=== PATIENT | male | born 1965 | race Caucasian/White ===

== ENCOUNTER 2022-01-28 10:06 | Outpatient (REF) | payer OTHER, SELFPAY ==
[2022-01-28 11:52] LABS: MANUAL DIFF FLAG NO
[2022-01-28 12:08] LABS: Basophils Absolute Auto 0.1 X10*3/uL (0.0-0.2); Basophils Percent Auto 0.9 % (0-2); Eosinophils Absolute Auto 0.1 X10*3/uL (0.0-0.4); Eosinophils Percent Auto 1.6 % (0-4); Hematocrit 41.9 % (42.0-52.0); Imm Gran Abs Auto 0.02 X10*3/uL (0.00-0.03); Imm Gran Pct Auto 0.3 % (0.0-0.4); Lymphocytes Absolute Auto 2.1 X10*3/uL (1.2-4.9); Lymphocytes Percent Auto 29.7 % (20-40); Mean Corpuscular HGB Conc 33.4 g/dl (31.0-36.0); Mean Corpuscular Hemoglobin 29.3 pg (27.0-33.0); Mean Corpuscular Volume 87.7 fL (80.0-98.0); Mean Platelet Volume 10.9 fL (9.4-12.4); Monocytes Absolute Auto 0.6 X10*3/uL (0.1-1.2); Monocytes Percent Auto 8.4 % (2-11); Neutrophils Absolute Auto 4.2 x10*3/uL (2.0-8.3); Neutrophils Percent Auto 59.1 % (45-73); Platelet Count 267 X10*3/uL (160-400); Red Blood Count 4.78 X10*6/uL (4.60-5.80); Red Cell Distribution Width 13.3 % (11.0-16.0)
[2022-01-28 12:25] LABS: Alanine Aminotransferase 27 U/L (0-40); Albumin Level 4.3 g/dL (3.5-5.0); Alkaline Phosphatase 71 U/L (39-117); Anion Gap 13 (12-20); Aspartate Amino Transferase 24 U/L (5-37); Bilirubin Total 1.8 mg/dL (0.0-1.0); Blood Urea Nitrogen 14 mg/dL (9-16); Calcium 8.9 mg/dL (8.4-10.2); Carbon Dioxide 26 mmol/L (22-29); Chloride 105 mmol/L (96-108); Cholesterol 194 mg/dL; Estimated Glomerular Filt Rate > 60; Glucose Fasting 93 mg/dL (60-99); HDL Cholesterol 42 mg/dL; LDL Cholesterol Calculated 136 mg/dl; Potassium 4.3 mmol/L (3.3-5.1); Sodium 140 mmol/L (135-145); Total Protein 7.4 g/dL (6.5-8.0); Triglycerides 83 mg/dL
[2022-01-28 12:36] LABS: PSA,Total (Free>4and<10) 1.13 ng/mL (0.00-4.00); TSH reflex Free T4 1.18 uIU/mL (0.32-4.0)
== END 2022-01-28 10:07 | disposition home or self-care (01) ==
LOC: HO.HMGCLDS 10:06
PROVIDERS: PCP Internal Medicine; Visit Provider Internal Medicine
DX: Z00.00 Encounter for general adult medical examination without abnormal findings (principal); Z12.5 Encounter for screening for malignant neoplasm of prostate; R60.9 Edema, unspecified; I10 Essential (primary) hypertension
CPT/HCPCS: 36415; 80053; 80061; 84153; 84443; 85025

== ENCOUNTER 2022-08-05 09:32 | Outpatient (REF) | payer OTHER, SELFPAY ==
[2022-08-05 12:09] LABS: Cholesterol 192 mg/dL; HDL Cholesterol 42 mg/dL; LDL Cholesterol Calculated 138 mg/dl; Triglycerides 63 mg/dL
== END 2022-08-05 09:33 | disposition home or self-care (01) ==
LOC: HO.HMGCLDS 09:32
PROVIDERS: PCP Internal Medicine; Visit Provider Internal Medicine
DX: I10 Essential (primary) hypertension (principal)
CPT/HCPCS: 36415; 80061

== ENCOUNTER 2023-02-03 09:33 | Outpatient (REF) | payer OTHER, SELFPAY ==
[2023-02-03 11:21] LABS: MANUAL DIFF FLAG NO
[2023-02-03 11:44] LABS: Basophils Absolute Auto 0.1 X10*3/uL (0.0-0.2); Basophils Percent Auto 0.9 % (0-2); Eosinophils Absolute Auto 0.1 X10*3/uL (0.0-0.4); Eosinophils Percent Auto 2.2 % (0-4); Hematocrit 40.8 % (42.0-52.0); Hemoglobin 13.5 g/dl (14.0-18.0); Imm Gran Abs Auto 0.02 X10*3/uL (0.00-0.03); Imm Gran Pct Auto 0.3 % (0.0-0.4); Lymphocytes Absolute Auto 1.8 X10*3/uL (1.2-4.9); Lymphocytes Percent Auto 28.7 % (20-40); Mean Corpuscular HGB Conc 33.1 g/dl (31.0-36.0); Mean Corpuscular Hemoglobin 29.2 pg (27.0-33.0); Mean Corpuscular Volume 88.3 fL (80.0-98.0); Mean Platelet Volume 10.8 fL (9.4-12.4); Monocytes Absolute Auto 0.6 X10*3/uL (0.1-1.2); Monocytes Percent Auto 9.2 % (2-11); Neutrophils Absolute Auto 3.7 x10*3/uL (2.0-8.3); Neutrophils Percent Auto 58.7 % (45-73); Platelet Count 293 X10*3/uL (160-400); Red Blood Count 4.62 X10*6/uL (4.60-5.80); Red Cell Distribution Width 13.5 % (11.0-16.0); White Blood Count 6.4 X10*3/uL (4.8-10.8)
[2023-02-03 12:41] LABS: PSA,Total (Free>4and<10) 1.61 ng/mL (0.00-4.00)
[2023-02-03 13:24] LABS: Alanine Aminotransferase 17 U/L (0-40); Albumin Level 4.2 g/dL (3.5-5.0); Alkaline Phosphatase 65 U/L (39-117); Anion Gap 10 (12-20); Aspartate Amino Transferase 20 U/L (5-37); Bilirubin Total 1.6 mg/dL (0.0-1.0); Blood Urea Nitrogen 10 mg/dL (9-16); Calcium 9.6 mg/dL (8.4-10.2); Carbon Dioxide 28 mmol/L (22-29); Chloride 107 mmol/L (96-108); Cholesterol 176 mg/dL; Estimated Glomerular Filt Rate > 60; Glucose Fasting 90 mg/dL (60-99); HDL Cholesterol 39 mg/dL; LDL Cholesterol Calculated 122 mg/dl; Potassium 4.3 mmol/L (3.3-5.1); Sodium 141 mmol/L (135-145); Total Protein 7.7 g/dL (6.5-8.0); Triglycerides 76 mg/dL
[2023-02-04 16:09] LABS: LDL Cholesterol Direct 129 mg/dL (<100)
== END 2023-02-03 09:34 | disposition home or self-care (01) ==
LOC: HO.10HDL 09:33
PROVIDERS: Visit Provider Internal Medicine
DX: Z00.00 Encounter for general adult medical examination without abnormal findings (principal); Z12.5 Encounter for screening for malignant neoplasm of prostate; I10 Essential (primary) hypertension; E78.5 Hyperlipidemia, unspecified
CPT/HCPCS: 36415; 80053; 80061; 83721; 84153; 85025

== ENCOUNTER 2023-02-17 11:54 | Outpatient (AMB) | payer OTHER, SELFPAY ==
[2023-02-17 12:00] VITALS: BP 136/80; PULSE 87; O2SAT 98; BMI 27.3
--- NOTE | 2023-02-17 12:00 | MHC.PC.OV ---
Vital Signs 02/17/23 12:00 Height 6 ft Weight 201 lb BMI 27.3 BP 136/80 Blood Pressure Location Lt brachial Position Sitting Pulse 87 Pulse Source Pulse Oximeter Pulse Oximetry (%) 98 Oxygen Delivery Method Room Air Intake Visit Reasons: Annual PE Intake Note: Pt is here today for PE. Allergies amoxicillin Adverse Reaction (Verified 02/17/23 12:01) Hives atropine [From Lomotil] Adverse Reaction (Verified 02/17/23 12:01) Hives diphenoxylate [From Lomotil] Adverse Reaction (Verified 02/17/23 12:01) Hives Medication List - Last Reconciled 02/17/23 by Jessica Adkins MD amlodipine 10 mg PO DAILY losartan 25 mg PO BID Tobacco use date assessed: 02/17/23 Dental Screening Dental Screen Date: 02/17/23 Did you have a dental visit in the last 12 months?: Yes Did you have a dental problem in the last 6 months where you did not have access to dental care?: No Was dental information given to patient?: Patient has dentist HPI Annual PE HPI Details Pt presents for PE. HTN is well controlled current medications. 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 How often do you have a drink containing alcohol?: Monthly or less 2. How many drinks containing alcohol do you have on a typical day when you are drinking?: 1 or 2 3. How often do you have six or more drinks on one occasion?: Never Total Score: 1 LUIZ-7 AMB Questionnaire LUIZ-7 Date LUIZ - 7 assessed: 08/19/22 Source: Developed by DrsChase Raza, Mis Cruz, Mansoor Hayden and colleagues, with an educational chang from [employer]. Review of Systems Const All systems reviewed & are unremarkable except as noted in HPI and below Reports no additional complaints Eyes Reports no additional complaints ENT Reports no additional complaints Card Reports no additional complaints Resp Reports no additional complaints GI Reports no additional complaints Reports no additional complaints Physical exam (Primary Care) Vital Signs: Last Vital Signs Pulse 87 02/17/23 12:00 BP 136/80 02/17/23 12:00 Pulse Ox 98 02/17/23 12:00 Oxygen Delivery Method Room Air 02/17/23 12:00 BMI result Body Mass Index 27.3 Tobacco/Smoking Status: Tobacco use Status Tobacco use date assessed 02/17/23 02/17/23 12:04 Patient Tobacco Use Status Never used Tobacco 02/17/23 12:04 e-Cigarette/Vaping Use Never Used 02/17/23 12:04 Thrive Assessment: Date of Thrive Assessment Date Thrive assessed 08/19/22 02/17/23 12:04 Const General: no acute distress HENMT Head: Yes normal to inspection General nose exam: Normal external nose present Mouth: Normal oral and palatal mucosa present Eyes General: appearance normal, both eyes and all related structures Resp Effort & Inspection: normal respiratory effort Auscultation: clear to auscultation bilaterally Cardio Rhythm: regular rhythm Heart sounds: S1 normal heart sound present and S2 normal heart sound present GI Inspection: Yes normal to inspection Palpation (GI): Soft to palpation Percussion: Yes normal to percussion Auscultation: normal bowel sounds Assessment and Plan Assessment & Plan (1) Hx of colonoscopy: Comment: 2017, recheck 5 years, brother colon ca at 49 Code(s): Z98.890 - Other specified postprocedural states Plan: Patient will schedule appointment with Dr. Whitman for colonoscopy (2) Anemia: Code(s): D64.9 - Anemia, unspecified Plan: For borderline low hemoglobin level iron studies and B12 will be checked. (3) Hyperlipemia: Code(s): E78.5 - Hyperlipidemia, unspecified Plan: Continue low-cholesterol diet (4) Nephrolithiasis: Comment: Dr. Smith Code(s): N20.0 - Calculus of kidney Plan: Follow-up with urology (5) HTN (hypertension): Code(s): I10 - Essential (primary) hypertension Plan: Continue current medications ,physical in 1 year Orders: Orders Vitamin B12 and Folate Today D64.9 - Anemia, unspecified IRON PROFILE Today D64.9 - Anemia, unspecified Comprehensive [facility] Panel Fast 365 Days D64.9 - Anemia, unspecified, E78.5 - Hyperlipidemia, unspecified, I10 - Essential (primary) hypertension, Z00.00 - Encounter for general adult medical examination without abnormal findings Lipid Panel 365 Days D64.9 - Anemia, unspecified, E78.5 - Hyperlipidemia, unspecified, I10 - Essential (primary) hypertension, Z00.00 - Encounter for general adult medical examination without abnormal findings PSA,Total (Free>4and<10) 365 Days D64.9 - Anemia, unspecified, E78.5 - Hyperlipidemia, unspecified, I10 - Essential (primary) hypertension, Z00.00 - Encounter for general adult medical examination without abnormal findings TSH reflex Free T4 365 Days D64.9 - Anemia, unspecified, E78.5 - Hyperlipidemia, unspecified, I10 - Essential (primary) hypertension, Z00.00 - Encounter for general adult medical examination without abnormal findings Complete Blood Count Auto Diff 365 Days D64.9 - Anemia, unspecified, E78.5 - Hyperlipidemia, unspecified, I10 - Essential (primary) hypertension, Z00.00 - Encounter for general adult medical examination without abnormal findings Referrals Gastroenterology Referral Z98.890 - Other specified postprocedural states Medications: Refilled amlodipine 10 mg PO DAILY 90 tabs 3RF losartan 25 mg PO BID 180 tabs 3RF Coding Level of Care Code Est Pt Prev Care 40-64y(89982) Diagnoses Hx of colonoscopy Z98.890 Anemia D64.9 Hyperlipemia E78.5 Nephrolithiasis N20.0 HTN (hypertension) I10
== END 2023-02-17 13:03 | disposition home or self-care (01) ==
PROVIDERS: Visit Provider Internal Medicine
DX: Z00.00 Encounter for general adult medical examination without abnormal findings (principal); I10 Essential (primary) hypertension; Z98.890 Other specified postprocedural states; D64.9 Anemia, unspecified; E78.5 Hyperlipidemia, unspecified; N20.0 Calculus of kidney
CPT/HCPCS: 99396

== ENCOUNTER 2023-02-17 12:52 | Outpatient (REF) | payer OTHER, SELFPAY ==
[2023-02-17 16:15] LABS: Iron 61 mcg/dL (45-160); Percent Iron Saturation 26 % (15-50); Total Iron Binding Capacity 237 mcg/dL (228-428); Unsaturated Iron Binding 176 ug/dL
[2023-02-17 16:52] LABS: Folate 12.8 ng/mL (> or = 4.0); Vitamin B12 764 pg/mL (200-900)
== END 2023-02-17 12:53 | disposition home or self-care (01) ==
LOC: HO.HMGCLDS 12:52
PROVIDERS: PCP Internal Medicine; Visit Provider Internal Medicine
DX: D64.9 Anemia, unspecified (principal)
CPT/HCPCS: 36415; 82607; 82746; 83540

== ENCOUNTER 2024-03-01 11:18 | Outpatient (AMB) | payer BC, SELFPAY ==
--- NOTE | 2024-03-01 11:37 | MHC.PC.OV ---
Vital Signs 03/01/24 11:39 Height 6 ft Weight 205 lb BMI 27.8 BP 139/88 Blood Pressure Location Lt brachial Position Sitting Pulse 88 Pulse Source Pulse Oximeter Pulse Oximetry (%) 98 Oxygen Delivery Method Room Air Intake Visit Reasons: Annual PE Intake Note: Patiet here for physical exam. last colon: 2013 Allergies amoxicillin Adverse Reaction (Verified 03/01/24 11:40) Hives atropine [From Lomotil] Adverse Reaction (Verified 03/01/24 11:40) Hives diphenoxylate [From Lomotil] Adverse Reaction (Verified 03/01/24 11:40) Hives Tobacco use date assessed: 03/01/24 Dental Screening Dental Screen Date: 03/01/24 Did you have a dental visit in the last 12 months?: Yes Did you have a dental problem in the last 6 months where you did not have access to dental care?: No Was dental information given to patient?: Patient has dentist HPI Annual PE HPI Details Pt presents for PE. 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 1. Little interest or pleasure in doing things: not at all 2. Feeling down, depressed, or hopeless: not at all 3. Trouble falling or staying asleep, or sleeping too much: not at all 4. Feeling tired or having little energy: not at all 5. Poor appetite or overeating: not at all 6. Feeling bad about yourself - or that you are a failure or have let yourself or your family down: not at all 7. Trouble concentrating on things, such as reading the newspaper or watching television: not at all 8. Moving or speaking so slowly that other people could have noticed. Or the opposite - being so fidgety or restless that you have been moving around a lot more than usual: not at all 9. Thoughts that you would be better off or of hurting yourself in some way: not at all Total score: 0 Depression Screening Interpretation: Negative Depression Screening Done: Yes 05323 - PHQ-9 Billing: Yes Source: Developed by Drs. South Raza, Mis Cruz, Mansoor Hayden and colleagues, with an educational chang from [employer]. Thrive Questionnaire Date Thrive assessed: 02/29/24 I am a: Patient What is your living situation today?: I have a steady place to live Within the past 12 months, did the food you bought not last and you didn't have the money to get more?: Never true Within the past 12 months, did you worry whether your food would run out before you got money to buy more?: Never true Do you have trouble paying for medicines?: No Do you have trouble getting transportation to medical appointments?: No Do you have trouble paying your heating and electricity bill?: No Do you have trouble taking care of your child, family member or friend?: No Do you have trouble with day-to-day activities such as bathing, preparing meals, shopping, managing finances, etc.?: No Are you currently unemployed and looking for a job?: No Are you interested in more education?: No Please select the resources that you would like help with: None Currently or been in a relationship where the following occur: No concerns reported THRIVE Score: 0 AUDIT C Alcohol Use Questionnaire (AUDIT-C) 1. How often do you have a drink containing alcohol?: 2-4 times a month 2. How many drinks containing alcohol do you have on a typical day when you are drinking?: 1 or 2 3. How often do you have six or more drinks on one occasion?: Never Total Score: 2 LUIZ-7 AMB Questionnaire LUIZ-7 Date LUIZ - 7 assessed: 03/01/24 Feeling nervous, anxious, or on edge: 0 = Not at all Not being able to stop or control worryin = Not at all Worrying too much about different things: 0 = Not at all Trouble relaxin = Not at all Being so restless that it is hard to sit still: 0 = Not at all Becoming easily annoyed or irritable: 0 = Not at all Feeling afraid as if something awful might happen: 0 = Not at all Total LUIZ-7 score (0-4 normal; 5-9 mild; 10-14 moderate; 15-21 severe): 0 Source: Developed by Drs. South Raza, Mis Cruz, Mansoor Hayden and colleagues, with an educational chang from [employer]. LUIZ-7 Assessment Billing LUIZ-7 Assessment Tool: LUIZ-7 Assessment 66192 Review of Systems Const All systems reviewed & are unremarkable except as noted in HPI and below Reports no additional complaints Eyes Reports no additional complaints ENT Reports no additional complaints Card Reports no additional complaints Resp Reports no additional complaints GI Reports no additional complaints Reports no additional complaints Physical exam (Primary Care) Vital Signs: Last Vital Signs Pulse 114 H 03/01/24 11:39 BP 150/98 H 03/01/24 11:39 Pulse Ox 98 03/01/24 11:39 Oxygen Delivery Method Room Air 03/01/24 11:39 BMI result Body Mass Index 27.8 Tobacco/Smoking Status: Tobacco use Status Tobacco use date assessed 03/01/24 03/01/24 11:42 Patient Tobacco Use Status Never used Tobacco 03/01/24 11:39 e-Cigarette/Vaping Use Never Used 03/01/24 11:39 PHQ-9: PHQ-9 Score PHQ-9: Total score 0 03/01/24 11:42 Depression Screening Interpretation: Negative Thrive Assessment: Date of Thrive Assessment Date Thrive assessed 02/29/24 03/01/24 11:39 Currently or been in a relationship where the following occur: No concerns reported Const General: no acute distress HENMT Head: Yes normal to inspection Ears: hearing grossly normal bilaterally Face and sinus: Yes normal facial exam Throat: Yes posterior oropharynx normal Eyes General: appearance normal, both eyes and all related structures Neck Neck: Yes no lymphadenopathy and Yes supple Resp Effort & Inspection: normal respiratory effort Auscultation: clear to auscultation bilaterally Cardio Rhythm: regular rhythm Heart sounds: S1 normal heart sound present and S2 normal heart sound present GI Inspection: Yes normal to inspection Palpation (GI): Soft to palpation Percussion: Yes normal to percussion Auscultation: normal bowel sounds Assessment and Plan Assessment & Plan (1) Hx of colonoscopy: Comment: 2017, recheck 5 years, brother colon ca at 49 Code(s): Z98.890 - Other specified postprocedural states Plan: Referred to GI for colonoscopy patient is overdue (2) HTN (hypertension): Code(s): I10 - Essential (primary) hypertension Plan: Blood pressure is elevated today, increase physical activity decrease salt intake discussed with the patient. Follow-up in 1 month and continue the same medications for now (3) Annual physical exam: Code(s): Z00.00 - Encounter for general adult medical examination without abnormal findings Plan: Well-balanced diet regular physical activity discussed with the patient. He will return for fasting blood work (4) Hyperlipemia: Code(s): E78.5 - Hyperlipidemia, unspecified Plan: Continue low-cholesterol diet Orders: Orders Comprehensive [place]. Panel Fast Today E78.5 - Hyperlipidemia, unspecified, I10 - Essential (primary) hypertension, Z00.00 - Encounter for general adult medical examination without abnormal findings TSH reflex Free T4 Today E78.5 - Hyperlipidemia, unspecified, I10 - Essential (primary) hypertension, Z00.00 - Encounter for general adult medical examination without abnormal findings Complete Blood Count Auto Diff Today E78.5 - Hyperlipidemia, unspecified, I10 - Essential (primary) hypertension, Z00.00 - Encounter for general adult medical examination without abnormal findings Lipid Panel Today E78.5 - Hyperlipidemia, unspecified, I10 - Essential (primary) hypertension, Z00.00 - Encounter for general adult medical examination without abnormal findings PSA,Total (Free>4and<10) Today E78.5 - Hyperlipidemia, unspecified, I10 - Essential (primary) hypertension, Z00.00 - Encounter for general adult medical examination without abnormal findings UA w Microscopic Today E78.5 - Hyperlipidemia, unspecified, I10 - Essential (primary) hypertension, Z00.00 - Encounter for general adult medical examination without abnormal findings Referrals Gastroenterology Referral Z98.890 - Other specified postprocedural states Coding Level of Care Code Est Pt Prev Care 40-64y(59677) Diagnoses Hx of colonoscopy Z98.890 HTN (hypertension) I10 Annual physical exam Z00.00 Hyperlipemia E78.5 Additional Codes LUIZ-7 Assessment Billing - LUIZ-7 Assessment Tool: LUIZ-7 Assessment 96145 ([id number])
[2024-03-01 11:39] VITALS: BP 139/88; PULSE 88; O2SAT 98; BMI 27.8
== END 2024-03-01 12:47 | disposition home or self-care (01) ==
PROVIDERS: PCP Internal Medicine; Visit Provider Internal Medicine
DX: Z00.00 Encounter for general adult medical examination without abnormal findings (principal); I10 Essential (primary) hypertension; Z98.890 Other specified postprocedural states; E78.5 Hyperlipidemia, unspecified
CPT/HCPCS: 99396

== ENCOUNTER 2024-03-29 10:06 | Outpatient (REF) | payer BC, SELFPAY ==
[2024-03-29 11:05] LABS: MANUAL DIFF FLAG NO
[2024-03-29 11:17] LABS: Basophils Percent Auto 0.6 % (0-2); Eosinophils Absolute Auto 0.1 X10*3/uL (0.0-0.4); Eosinophils Percent Auto 2.1 % (0-4); Hemoglobin 13.6 g/dl (14.0-18.0); Imm Gran Abs Auto 0.02 X10*3/uL (0.00-0.03); Imm Gran Pct Auto 0.3 % (0.0-0.4); Lymphocytes Absolute Auto 1.9 X10*3/uL (1.2-4.9); Lymphocytes Percent Auto 30.8 % (20-40); Mean Corpuscular HGB Conc 33.2 g/dl (31.0-36.0); Mean Corpuscular Hemoglobin 29.4 pg (27.0-33.0); Mean Corpuscular Volume 88.6 fL (80.0-98.0); Mean Platelet Volume 10.3 fL (9.4-12.4); Monocytes Absolute Auto 0.9 X10*3/uL (0.1-1.2); Monocytes Percent Auto 13.7 % (2-11); Neutrophils Absolute Auto 3.3 x10*3/uL (2.0-8.3); Neutrophils Percent Auto 52.5 % (45-73); Platelet Count 257 X10*3/uL (160-400); Red Blood Count 4.63 X10*6/uL (4.60-5.80); Red Cell Distribution Width 13.4 % (11.0-16.0); White Blood Count 6.2 X10*3/uL (4.8-10.8)
[2024-03-29 11:33] LABS: Appearance Urine Clear; Color Urine Yellow; Glucose Urine UA Negative (Negative); Leukocyte Esterase Urine Negative (Negative); Nitrite Urine Negative (Negative); Urine Blood Negative (Negative); Urine Ketones Negative (Negative); Urine Protein Negative (Neg-Trace)
[2024-03-29 11:40] LABS: Bacteria Urine None Seen (None Seen); Hyaline Casts Urine 0-2 /LPF (0-2); RBC Urine 0-2 /HPF (0-2); Squamous Epithelial Cell Urine 0-2 /HPF (0-2); WBC Urine 0-5 /HPF (0-5)
[2024-03-29 12:06] LABS: PSA,Total (Free>4and<10) 1.06 ng/mL (0.00-4.00)
[2024-03-29 12:20] LABS: Alanine Aminotransferase 21 U/L (0-40); Alkaline Phosphatase 60 U/L (39-117); Anion Gap 13 (12-20); Aspartate Amino Transferase 23 U/L (5-37); Bilirubin Total 1.4 mg/dL (0.0-1.0); Blood Urea Nitrogen 8 mg/dL (9-16); Calcium 9.3 mg/dL (8.4-10.2); Carbon Dioxide 27 mmol/L (22-29); Chloride 105 mmol/L (96-108); Cholesterol 161 mg/dL (<200); Estimated Glomerular Filt Rate > 60; Glucose Fasting 90 mg/dL (60-99); HDL Cholesterol 35 mg/dL (>40); LDL Cholesterol Calculated 110 mg/dL (<100); Potassium 4.1 mmol/L (3.3-5.1); Sodium 141 mmol/L (135-145); Total Protein 7.7 g/dL (6.5-8.0); Triglycerides 82 mg/dL (<150)
[2024-03-29 12:37] LABS: TSH reflex Free T4 1.33 uIU/mL (0.32-4.0)
== END 2024-03-29 10:07 | disposition home or self-care (01) ==
LOC: HO.WFDLDS 10:06
PROVIDERS: Visit Provider Internal Medicine
DX: Z00.00 Encounter for general adult medical examination without abnormal findings (principal); E78.5 Hyperlipidemia, unspecified; D64.9 Anemia, unspecified; I10 Essential (primary) hypertension; Z12.5 Encounter for screening for malignant neoplasm of prostate
CPT/HCPCS: 36415; 80053; 80061; 81001; 84153; 84443; 85025

== ENCOUNTER 2024-04-12 09:17 | Outpatient (AMB) | payer BC, SELFPAY ==
[2024-04-12 09:21] VITALS: BP 139/88; PULSE 76; O2SAT 98; BMI 27.5
--- NOTE | 2024-04-12 09:21 | MHC.PC.OV ---
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: House Patient Tobacco Use Status: Never used Tobacco e-Cigarette/Vaping Use: Never Used service: No Current occupational status: employed Cognitive needs: No Hearing needs: No Vision needs: Yes Questionnaire Thrive Questionnaire Date Thrive assessed: 02/29/24 I am a: Patient What is your living situation today?: I have a steady place to live Within the past 12 months, did the food you bought not last and you didn't have the money to get more?: Never true Within the past 12 months, did you worry whether your food would run out before you got money to buy more?: Never true Do you have trouble paying for medicines?: No Do you have trouble getting transportation to medical appointments?: No Do you have trouble paying your heating and electricity bill?: No Do you have trouble taking care of your child, family member or friend?: No Do you have trouble with day-to-day activities such as bathing, preparing meals, shopping, managing finances, etc.?: No Are you currently unemployed and looking for a job?: No Are you interested in more education?: No Please select the resources that you would like help with: None Currently or been in a relationship where the following occur: No concerns reported THRIVE Score: 0 LUIZ-7 AMB Questionnaire LUIZ-7 Date LUIZ - 7 assessed: 03/01/24 Feeling nervous, anxious, or on edge: 0 = Not at all Not being able to stop or control worryin = Not at all Worrying too much about different things: 0 = Not at all Trouble relaxin = Not at all Being so restless that it is hard to sit still: 0 = Not at all Becoming easily annoyed or irritable: 0 = Not at all Feeling afraid as if something awful might happen: 0 = Not at all Total LUIZ-7 score (0-4 normal; 5-9 mild; 10-14 moderate; 15-21 severe): 0 Source: Developed by Drs. South Raza, Mis Cruz, Mansoor Hayden and colleagues, with an educational chang from [employer]. LUIZ-7 Assessment Billing LUIZ-7 Assessment Tool: LUIZ-7 Assessment 02664 Review of Systems Const All systems reviewed & are unremarkable except as noted in HPI and below ENT Reports no additional complaints Card Reports no additional complaints Resp Reports no additional complaints GI Reports no additional complaints Reports no additional complaints Physical exam (Primary Care) Vital Signs: Last Vital Signs Pulse 76 04/12/24 09:21 BP 139/88 04/12/24 09:21 Pulse Ox 98 04/12/24 09:21 Oxygen Delivery Method Room Air 04/12/24 09:21 BMI result Body Mass Index 27.5 Tobacco/Smoking Status: Tobacco use Status Tobacco use date assessed 03/01/24 04/12/24 09:24 Patient Tobacco Use Status Never used Tobacco 04/12/24 09:24 e-Cigarette/Vaping Use Never Used 04/12/24 09:24 Thrive Assessment: Date of Thrive Assessment Date Thrive assessed 02/29/24 04/12/24 09:24 Currently or been in a relationship where the following occur: No concerns reported Const General: no acute distress HENMT Head: Yes normal to inspection Face and sinus: Yes normal facial exam Eyes General: appearance normal, both eyes and all related structures Neck Neck: Yes no lymphadenopathy and Yes supple Resp Effort & Inspection: normal respiratory effort Auscultation: clear to auscultation bilaterally Cardio Rhythm: regular rhythm Heart sounds: S1 normal heart sound present and S2 normal heart sound present Coding Level of Care Code Est Pt Level 4 (60419) Diagnoses Anemia D64.9 Hyperlipemia E78.5 HTN (hypertension) I10 Additional Codes LUIZ-7 Assessment Billing - LUIZ-7 Assessment Tool: LUIZ-7 Assessment 84131 ([id number]) Assessment & Plan Assessment & Plan (1) Anemia: Comment: Normal iron count and B12 level Code(s): D64.9 - Anemia, unspecified Category: Medical Plan: Monitor CBC (2) Hyperlipemia: Comment: Diet controlled Code(s): E78.5 - Hyperlipidemia, unspecified Category: Medical Plan: Low-cholesterol diet (3) HTN (hypertension): Code(s): I10 - Essential (primary) hypertension Category: Medical Plan: Continue amlodipine and increase losartan to 100 mg a day follow-up in 2 months Medications: New losartan 100 mg PO DAILY 90 tabs 0RF Discontinued losartan Discontinued Reason: Doctor's Order 25 mg PO BID 180 tabs 3RF
== END 2024-04-12 16:07 | disposition home or self-care (01) ==
PROVIDERS: PCP Internal Medicine; Visit Provider Internal Medicine
DX: D64.9 Anemia, unspecified (principal); E78.5 Hyperlipidemia, unspecified; I10 Essential (primary) hypertension

== ENCOUNTER → 2024-04-12 09:17 | Outpatient (BNVA) | payer BC, SELFPAY | PROVIDERS: PCP Internal Medicine; Visit Provider Internal Medicine | DX: D64.9 Anemia, unspecified (principal); E78.5 Hyperlipidemia, unspecified; I10 Essential (primary) hypertension; Z79.899 Other long term (current) drug therapy | CPT/HCPCS: 96127 ==

== ENCOUNTER 2024-06-13 09:25 | Outpatient (AMB) | payer BC, SELFPAY ==
[2024-06-13 09:34] VITALS: BP 138/78; PULSE 91; O2SAT 97; BMI 27.8
--- NOTE | 2024-06-13 09:34 | A.OFFPC_ITS ---
Vital Signs 06/13/24 09:34 Height 6 ft Weight 205 lb BMI 27.8 BP 138/78 Blood Pressure Location Lt brachial Position Sitting Pulse 91 Pulse Source Pulse Oximeter Pulse Oximetry (%) 97 Oxygen Delivery Method Room Air Intake Visit Reasons: 2m follow up Intake Note: Pt is here today for 2 months follow up visit. Allergies amoxicillin Adverse Reaction (Verified 06/13/24 09:36) Hives atropine [From Lomotil] Adverse Reaction (Verified 06/13/24 09:36) Hives diphenoxylate [From Lomotil] Adverse Reaction (Verified 06/13/24 09:36) Hives Medication List - Last Reconciled 06/13/24 by Jessica Adkins MD amlodipine 10 mg PO DAILY losartan 100 mg PO DAILY Tobacco use date assessed: 06/13/24 Dental Screening Dental Screen Date: 03/01/24 HPI 2m follow up HPI Details Patient presents for the follow-up on hypertension controlled on current medications PFSH Medical History Erectile dysfunction Nephrolithiasis HTN (hypertension) Surgical History Hx of colonoscopy Family History Brother Colon cancer Sister Ovarian ca Mother CVA (cerebral vascular accident) Social History 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:: , 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, 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, 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: House Patient Tobacco Use Status: Never used Tobacco e-Cigarette/Vaping Use: Never Used service: No Current occupational status: employed Cognitive needs: No Hearing needs: No Vision needs: Yes Questionnaire Thrive Questionnaire Date Thrive assessed: 02/29/24 I am a: Patient What is your living situation today?: I have a steady place to live Within the past 12 months, did the food you bought not last and you didn't have the money to get more?: Never true Within the past 12 months, did you worry whether your food would run out before you got money to buy more?: Never true Do you have trouble paying for medicines?: No Do you have trouble getting transportation to medical appointments?: No Do you have trouble paying your heating and electricity bill?: No Do you have trouble taking care of your child, family member or friend?: No Do you have trouble with day-to-day activities such as bathing, preparing meals, shopping, managing finances, etc.?: No Are you currently unemployed and looking for a job?: No Are you interested in more education?: No Please select the resources that you would like help with: None Currently or been in a relationship where the following occur: No concerns reported THRIVE Score: 0 LUIZ-7 AMB Questionnaire LUIZ-7 Date LUIZ - 7 assessed: 03/01/24 Source: Developed by Drs. South Raza, Mis Cruz, Mansoor Hayden and colleagues, with an educational chang from [employer]. Review of Systems Const All systems reviewed & are unremarkable except as noted in HPI and below Eyes Reports no additional complaints ENT Reports no additional complaints Card Reports no additional complaints Resp Reports no additional complaints GI Reports no additional complaints Reports no additional complaints Physical exam (Primary Care) Vital Signs: Last Vital Signs Pulse 91 06/13/24 09:34 BP 138/78 06/13/24 09:34 Pulse Ox 97 06/13/24 09:34 Oxygen Delivery Method Room Air 06/13/24 09:34 BMI result Body Mass Index 27.8 Tobacco/Smoking Status: Tobacco use Status Tobacco use date assessed 06/13/24 06/13/24 09:37 Patient Tobacco Use Status Never used Tobacco 06/13/24 09:34 e-Cigarette/Vaping Use Never Used 06/13/24 09:34 Thrive Assessment: Date of Thrive Assessment Date Thrive assessed 02/29/24 06/13/24 09:34 Currently or been in a relationship where the following occur: No concerns reported Const General: no acute distress HENMT Head: Yes normal to inspection Mouth: Normal oral and palatal mucosa present Eyes General: appearance normal, both eyes and all related structures Resp Effort & Inspection: normal respiratory effort Auscultation: clear to auscultation bilaterally Cardio Rhythm: regular rhythm Heart sounds: S1 normal heart sound present and S2 normal heart sound present GI Inspection: Yes normal to inspection Coding Level of Care Code Est Pt Level 3 (26255) Diagnoses HTN (hypertension) I10 Assessment & Plan Assessment & Plan (1) HTN (hypertension): Code(s): I10 - Essential (primary) hypertension Category: Medical Plan: Continue current medications and increase physical activity. Follow-up in 4 months Orders: Orders Basic Metabolic Panel 1 Week I10 - Essential (primary) hypertension Medications: Refilled amlodipine 10 mg PO DAILY 90 tabs 3RF losartan 100 mg PO DAILY 90 tabs 3RF
== END 2024-06-13 10:20 | disposition home or self-care (01) ==
PROVIDERS: PCP Internal Medicine; Visit Provider Internal Medicine
DX: I10 Essential (primary) hypertension (principal)

== ENCOUNTER → 2024-06-13 09:25 | Outpatient (BNVA) | payer BC, SELFPAY | PROVIDERS: PCP Internal Medicine; Visit Provider Internal Medicine ==

== ENCOUNTER 2024-06-14 15:11 | Outpatient (AMB) | payer BC, SELFPAY ==
--- NOTE | 2024-06-14 15:15 | A.OFFVIS_ITS ---
Vital Signs 06/14/24 15:17 Height 6 ft Weight 210 lb 5.136 oz BMI 28.5 BP 144/78 H Blood Pressure Location Rt brachial Position Sitting Pulse 82 Pulse Source Pulse Oximeter Pulse Oximetry (%) 97 Oxygen Delivery Method Room Air Intake Visit Reasons: Colonoscopy Screening Intake Note: NEW PATIENT Luis presents in office today for a scheduled colo scrn Prior hx of colo/egd? 2017 via [facility] Meds and Allergies reviewed? Y Any significant concerns or questions? N Pharmacy verified? [facility] Allergies amoxicillin Adverse Reaction (Verified 06/14/24 15:16) Hives atropine [From Lomotil] Adverse Reaction (Verified 06/14/24 15:16) Hives diphenoxylate [From Lomotil] Adverse Reaction (Verified 06/14/24 15:16) Hives HPI HPI Colonoscopy Screening: Details: 58 year old? male with past medical history of anemia, hyperlipidemia, hypertension is here today for pre colonoscopy screening.? Patient was sent to us by his PCP.? Last colonoscopy was done it [facility] patient believes it was in 2017. Patient reports his brother was diagnosed with colorectal cancer at age 49.? Patient denies any gastrointestinal symptoms in the past or at present.? ? Denies history of difficulty with sedation or anesthesia in the past.? Negative for history of sleep apnea.? Denies any history of cardiac, renal, pulmonary, or hepatic disease.?? No history of infectious? diseases like hepatitis A, B, C, HIV or tuberculosis.? 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: House Patient Tobacco Use Status: Never used Tobacco e-Cigarette/Vaping Use: Never Used service: No Current occupational status: employed Cognitive needs: No Hearing needs: No Vision needs: Yes Review of Systems Const Denies weight gain and Denies weight loss ENT Reports no additional complaints, Denies dysphagia and Denies odynophagia Card Reports no additional complaints Resp Reports no additional complaints GI Denies abdominal pain, Denies belching, Denies melena, Denies bloating, Denies change in bowel habits, Denies dysphagia, Denies excessive flatus, Denies dyspepsia, Denies heartburn, Denies diarrhea, Denies loose stools, Denies nausea, Denies odynophagia and Denies vomiting Reports no additional complaints Musc Reports no additional complaints Neuro Reports no additional complaints Psych Reports no additional complaints Endo Reports no additional complaints Physical Exam Vital Signs: Last Vital Signs Pulse 82 06/14/24 15:17 BP 144/78 H 06/14/24 15:17 Pulse Ox 97 06/14/24 15:17 Oxygen Delivery Method Room Air 06/14/24 15:17 BMI result Body Mass Index 28.5 Const General: healthy appearing, no acute distress and well developed Nutritional Appearance: well nourished Orientation/consciousness: patient oriented x3 Resp Effort & Inspection: normal respiratory effort, able to speak in complete sentences, no tracheal deviation and symmetric chest movement Auscultation: clear to auscultation bilaterally Cardio Rate: regular rate GI Inspection: Yes normal to inspection and No distended Palpation (GI): Soft to palpation, not firm, nontender and No hepatosplenomegaly present Auscultation: normal bowel sounds General: Yes no CVA tenderness Back/Spine/Pelvis Back: no CVA tenderness Skin General skin exam: elasticity normal, turgor normal and dry skin Neuro General: patient oriented x3 Psych Appearance: grossly normal Mental Status: mental status grossly normal Assessment & Plan Assessment & Plan (1) Hx of colonoscopy: Code(s): Z98.890 - Other specified postprocedural states Category: Medical (2) Screen for colon cancer: Code(s): Z12.11 - Encounter for screening for malignant neoplasm of colon (3) Family history of colorectal cancer: Code(s): Z80.0 - Family history of malignant neoplasm of digestive organs Category: Medical Plan Patient denies any GI, cardiac or respiratory symptoms.? Denies any issues with anesthesia in the past.? Denies any history of sleep apnea.? No history infectious diseases in the past or present.? Not on any anticoagulation therapy.? No family or personal history of colon cancer or polyps.? Patient denies melena, hematochezia, unintentional weight loss or ribbon like stools.? Discussed at length the pre-procedure,? prep, diet & medications as well as what to expect prior, during and after the procedure.?? Stressed the importance of good bowel prep.? Recommended the use of Vaseline or Calmoseptine OTC & baby wipes with bowel movements to promote comfort.? ?Patient verbalizes understanding and agrees to plan of care.? He was given the opportunity to ask questions and all questions answered.? We will see him after the procedure.? Medications: New bisacodyl (Dulcolax (bisacodyl)) take 4 tabs at noon the day before your colonoscopy 20 mg (4 x 5 mg) PO ONCE 4 tabs 0RF 1 day Z12.11 - Encounter for screening for malignant neoplasm of colon polyethylene glycol 3350 (Miralax) As directed by gastroenterology department at [facility] 238 grams PO ONCE 238 grams 0RF Z12.11 - Encounter for screening for malignant neoplasm of colon Coding Level of Care Code New Pt Level 3 (95236) Diagnoses Hx of colonoscopy Z98.890 Screen for colon cancer Z12.11 Family history of colorectal cancer Z80.0 Time Spent (min) 40 Comment 30 minutes spent with patient and additional 10 minutes spent reviewing his records
[2024-06-14 15:17] VITALS: BP 144/78; PULSE 82; O2SAT 97; BMI 28.5
== END 2024-06-14 16:23 | disposition home or self-care (01) ==
PROVIDERS: PCP Internal Medicine; Visit Provider Nurse Practitioner Family
DX: Z01.818 Encounter for other preprocedural examination (principal); Z12.11 Encounter for screening for malignant neoplasm of colon; Z80.0 Family history of malignant neoplasm of digestive organs
CPT/HCPCS: S0285

== ENCOUNTER 2024-06-25 09:43 | Outpatient (REF) | payer BC, SELFPAY ==
[2024-06-25 13:33] LABS: MANUAL DIFF FLAG NO
[2024-06-25 13:38] LABS: Basophils Absolute Auto 0.1 X10*3/uL (0.0-0.2); Basophils Percent Auto 0.8 % (0-2); Eosinophils Absolute Auto 0.1 X10*3/uL (0.0-0.4); Eosinophils Percent Auto 1.5 % (0-4); Hematocrit 40.7 % (42.0-52.0); Hemoglobin 13.2 g/dl (14.0-18.0); Imm Gran Abs Auto 0.03 X10*3/uL (0.00-0.03); Imm Gran Pct Auto 0.4 % (0.0-0.4); Lymphocytes Percent Auto 26.9 % (20-40); Mean Corpuscular HGB Conc 32.4 g/dl (31.0-36.0); Mean Corpuscular Volume 89.5 fL (80.0-98.0); Mean Platelet Volume 10.7 fL (9.4-12.4); Monocytes Absolute Auto 0.7 X10*3/uL (0.1-1.2); Monocytes Percent Auto 9.2 % (2-11); Neutrophils Absolute Auto 4.5 x10*3/uL (2.0-8.3); Neutrophils Percent Auto 61.2 % (45-73); Platelet Count 263 X10*3/uL (160-400); Red Blood Count 4.55 X10*6/uL (4.60-5.80); Red Cell Distribution Width 13.6 % (11.0-16.0); White Blood Count 7.4 X10*3/uL (4.8-10.8)
[2024-06-25 14:11] LABS: PSA,Total (Free>4and<10) 1.31 ng/mL (0.00-4.00)
[2024-06-25 14:13] LABS: Alanine Aminotransferase 28 U/L (0-40); Alkaline Phosphatase 64 U/L (39-117); Anion Gap 8 (12-20); Aspartate Amino Transferase 30 U/L (5-37); Bilirubin Total 1.1 mg/dL (0.0-1.0); Blood Urea Nitrogen 15 mg/dL (9-16); Calcium 9.1 mg/dL (8.4-10.2); Carbon Dioxide 29 mmol/L (22-29); Chloride 108 mmol/L (96-108); Cholesterol 173 mg/dL (<200); Estimated Glomerular Filt Rate > 60; Glucose Fasting 85 mg/dL (60-99); Glucose Random 84 mg/dL (60-115); HDL Cholesterol 43 mg/dL (>40); LDL Cholesterol Calculated 115 mg/dL (<100); Potassium 4.2 mmol/L (3.3-5.1); Sodium 141 mmol/L (135-145); TSH reflex Free T4 1.45 uIU/mL (0.32-4.0); Total Protein 7.2 g/dL (6.5-8.0); Triglycerides 76 mg/dL (<150)
== END 2024-06-25 09:44 | disposition home or self-care (01) ==
LOC: HO.HMGCLDS 09:43
PROVIDERS: PCP Internal Medicine; Visit Provider Internal Medicine
DX: Z00.00 Encounter for general adult medical examination without abnormal findings (principal); E78.5 Hyperlipidemia, unspecified; I10 Essential (primary) hypertension; Z12.5 Encounter for screening for malignant neoplasm of prostate
CPT/HCPCS: 36415; 80048; 80053; 80061; 84153; 84443; 85025

== ENCOUNTER 2024-10-25 12:50 | Outpatient (AMB) | payer BC, SELFPAY ==
--- NOTE | 2024-10-25 12:57 | MHC.PC.OV ---
Vital Signs 10/25/24 12:58 Height 6 ft Weight 204 lb BMI 27.7 BP 136/78 Blood Pressure Location Lt brachial Position Sitting Respiration 18 Pulse 85 Pulse Source Pulse Oximeter Temp 98.5 F Temp Source Oral Pulse Oximetry (%) 99 Oxygen Delivery Method Room Air Intake Visit Reasons: 4m follow up Intake Note: Pt is here today for 4 months follow up visit. Allergies amoxicillin Adverse Reaction (Verified 10/25/24 12:59) Hives atropine [From Lomotil] Adverse Reaction (Verified 10/25/24 12:59) Hives diphenoxylate [From Lomotil] Adverse Reaction (Verified 10/25/24 12:59) Hives Medication List - Last Reconciled 10/25/24 by Jessica Adkins MD amlodipine-olmesartan 10-40 mg 1 tab PO DAILY bisacodyl (Dulcolax (bisacodyl)) 20 mg (4 x 5 mg) PO ONCE 1 day polyethylene glycol 3350 (Miralax) 238 grams PO ONCE Tobacco use date assessed: 10/25/24 Dental Screening Dental Screen Date: 10/25/24 Did you have a dental visit in the last 12 months?: Yes Did you have a dental problem in the last 6 months where you did not have access to dental care?: No Was dental information given to patient?: Patient has dentist HPI 4m follow up HPI Details Patient presents for the follow-up on hypertension. He has been taking amlodipine 10 mg and losartan 100 mg daily. Patient has not been exercising regularly but has been following low-sodium diet. 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 1. Little interest or pleasure in doing things: not at all 2. Feeling down, depressed, or hopeless: not at all 3. Trouble falling or staying asleep, or sleeping too much: not at all 4. Feeling tired or having little energy: not at all 5. Poor appetite or overeating: not at all 6. Feeling bad about yourself - or that you are a failure or have let yourself or your family down: not at all 7. Trouble concentrating on things, such as reading the newspaper or watching television: not at all 8. Moving or speaking so slowly that other people could have noticed. Or the opposite - being so fidgety or restless that you have been moving around a lot more than usual: not at all 9. Thoughts that you would be better off or of hurting yourself in some way: not at all Total score: 0 Depression Screening Interpretation: Negative Depression Screening Done: Yes 98932 - PHQ-9 Billing: Yes Source: Developed by Drs. South Raza, Mis Cruz, Mansoor Hayden and colleagues, with an educational chang from [employer]. Thrive Questionnaire Date Thrive assessed: 10/25/24 I am a: Patient What is your living situation today?: I have a steady place to live Within the past 12 months, did the food you bought not last and you didn't have the money to get more?: Never true Within the past 12 months, did you worry whether your food would run out before you got money to buy more?: Never true Do you have trouble paying for medicines?: No Do you have trouble getting transportation to medical appointments?: No Do you have trouble paying your heating and electricity bill?: No Do you have trouble taking care of your child, family member or friend?: I choose not to answer this question Do you have trouble with day-to-day activities such as bathing, preparing meals, shopping, managing finances, etc.?: Yes Are you currently unemployed and looking for a job?: No Are you interested in more education?: No Please select the resources that you would like help with: None Currently or been in a relationship where the following occur: No concerns reported THRIVE Score: 0 AUDIT C Alcohol Use Questionnaire (AUDIT-C) 1. How often do you have a drink containing alcohol?: Monthly or less 2. How many drinks containing alcohol do you have on a typical day when you are drinking?: 1 or 2 3. How often do you have six or more drinks on one occasion?: Never Total Score: 1 LUIZ-7 AMB Questionnaire LUIZ-7 Date LUIZ - 7 assessed: 10/25/24 Feeling nervous, anxious, or on edge: 0 = Not at all Not being able to stop or control worryin = Not at all Worrying too much about different things: 0 = Not at all Trouble relaxin = Not at all Being so restless that it is hard to sit still: 0 = Not at all Becoming easily annoyed or irritable: 0 = Not at all Feeling afraid as if something awful might happen: 0 = Not at all Total LUIZ-7 score (0-4 normal; 5-9 mild; 10-14 moderate; 15-21 severe): 0 Source: Developed by Drs. South Raza, Mis Cruz, Mansoor Hayden and colleagues, with an educational chang from [employer]. LUIZ-7 Assessment Billing LUIZ-7 Assessment Tool: LUIZ-7 Assessment 44980 Review of Systems Const All systems reviewed & are unremarkable except as noted in HPI and below ENT Reports no additional complaints Card Reports no additional complaints Resp Reports no additional complaints GI Reports no additional complaints Reports no additional complaints Physical exam (Primary Care) Vital Signs: Last Vital Signs Temp 98.5 F 10/25/24 12:58 Pulse 85 10/25/24 12:58 Resp 18 10/25/24 12:58 BP 136/78 10/25/24 12:58 Pulse Ox 99 10/25/24 12:58 Oxygen Delivery Method Room Air 10/25/24 12:58 BMI result Body Mass Index 27.7 Tobacco/Smoking Status: Tobacco use Status Tobacco use date assessed 10/25/24 10/25/24 13:02 Patient Tobacco Use Status Never used Tobacco 10/25/24 13:02 e-Cigarette/Vaping Use Never Used 10/25/24 13:02 PHQ-9: PHQ-9 Score PHQ-9: Total score 0 10/25/24 14:52 Depression Screening Interpretation: Negative Thrive Assessment: Date of Thrive Assessment Date Thrive assessed 10/25/24 10/25/24 13:02 Currently or been in a relationship where the following occur: No concerns reported Const General: no acute distress HENMT Face and sinus: Yes normal facial exam Neck Neck: Yes supple Resp Effort & Inspection: normal respiratory effort Auscultation: clear to auscultation bilaterally Cardio Rhythm: regular rhythm Heart sounds: S1 normal heart sound present and S2 normal heart sound present Coding Level of Care Code Est Pt Level 3 (58030) Diagnoses HTN (hypertension) I10 Additional Codes LUIZ-7 Assessment Billing - LUIZ-7 Assessment Tool: LUIZ-7 Assessment 09437 ([id number]) PHQ-9 - 97198 - PHQ-9 Billing: Yes ([id number]) Assessment & Plan Assessment & Plan (1) HTN (hypertension): Code(s): I10 - Essential (primary) hypertension Category: Medical Plan: Change amlodipine and losartan to amlodipine with olmesartan 10/40. Follow-up in 3 months Orders: Orders Complete Blood Count Auto Diff 4 Months I10 - Essential (primary) hypertension Comprehensive [place]. Panel Fast 4 Months I10 - Essential (primary) hypertension Medications: New amlodipine-olmesartan 10-40 mg 1 tab PO DAILY 90 tabs 0RF Discontinued amlodipine Discontinued Reason: Doctor's Order 10 mg PO DAILY 90 tabs 3RF losartan Discontinued Reason: Doctor's Order 100 mg PO DAILY 90 tabs 3RF
[2024-10-25 12:58] VITALS: BP 136/78; PULSE 85; RESP 18; TEMP 36.9; O2SAT 99; BMI 27.7
--- OUTSIDE RECORDS SUMMARY | 2024-10-25 13:15 | XMS_ITS | Encounter Summary ---
Author Organization [facility] Address [address] [place] [address] Care Team Providers Care Maintainer [employer] Name Role Phone Esperanza Levine MD Primary Care Provider Unavailable Stephan Chavarria MD Primary Care Provider [phone] Encounter Details Date Type Department Care Team Description 07/03/2020 Refill Adult Medicine [address] [id number] Esperanza Levine MD Social History Tobacco Use Types Packs/Day Years Used Date Smoking Tobacco: Never Smokeless Tobacco: Never Alcohol Use Standard Drinks/Week Comments Yes 0 (1 standard drink = 0.6 oz pur e alcohol) occas Sex Assigned at Date Recorded Not on file documented as of this encounter Plan of Treatment Not on file documented as of this encounter Visit Diagnoses Not on filedocumented in this encounter Care Teams Maintainer [employer] Relationship Specialty Start Date End Date Esperanza Levine MD PCP - General 04/13/0004/27 Stephan Chavarria MD [address] [place] [address] [id number] PCP - General Internal Medicine 05/18/21 documented as of this encounter
--- OUTSIDE RECORDS SUMMARY | 2024-10-25 13:15 | XMS_ITS | Encounter Summary ---
Author Organization [facility] Address [address] [place] [address] Care Team Providers Care .Net Programmer Name Role Phone Esperanza Levine MD Primary Care Provider Unavailable Stephan Chavarria MD Primary Care Provider [phone] Encounter Details Date Type Department Care Team Description 12/13/2019 Refill Adult Medicine [address] [id number] Esperanza Levine MD Social History Tobacco Use Types Packs/Day Years Used Date Smoking Tobacco: Never Smokeless Tobacco: Never Alcohol Use Standard Drinks/Week Comments Yes 0 (1 standard drink = 0.6 oz pur e alcohol) occas Sex Assigned at Date Recorded Not on file documented as of this encounter Miscellaneous Notes * Telephone Encounter - Rigo Chow M.A. - 12/13/2019 2:06 PM EDT Pt called to schedule f/u apt. Apt is made. Patient stated that his losartan was sent to the wrong pharmacy. Please resend to [facility] documented in this encounter Plan of Treatment Not on file documented as of this encounter Visit Diagnoses Not on filedocumented in this encounter Care Teams .Net Programmer Relationship Specialty Start Date End Date Esperanza Levine MD PCP - General 04/13/0004/27 Stephan Chavarria MD [address] [place] [id number] PCP - General Internal Medicine 05/18/21 documented as of this encounter
--- OUTSIDE RECORDS SUMMARY | 2024-10-25 13:15 | XMS_ITS | Encounter Summary ---
Author Organization [facility] Address [address] [place] [address] Care Team Providers Care Decal Decorator Name Role Phone Esperanza Levine MD Primary Care Provider Unavailable Stephan Chavarria MD Primary Care Provider Encounter Details Date Type Department Care Team Description 10/16/2014 Hereditary Cancer Qu iz Results Medical Records [address] [place] [id number] Abstract, Provider Social History Tobacco Use Types Packs/Day Years [...] on filedocumented in this encounter Care Teams Decal Decorator Relationship Specialty Start Date End Date Esperanza Levine MD PCP - General 04/13/0004/27 Stephan Chavarria MD [address] [place] [address] [id number] PCP - General Internal Medicine 05/18/21 documented as of this encounter
--- OUTSIDE RECORDS SUMMARY | 2024-10-25 13:15 | XMS_ITS | Clinical Summary ---
Author Organization [facility] Address [address] [place] [address] Care Team Providers Care Lead Web Developer Name Role Phone Stephan Chavarria MD Primary Care Provider [phone] Allergies Active Allergy Reactions Severity Noted Date Comments Amoxicillin Hives/Urticaria 11/07/2016 Lomotil Hives/Urticaria 11/16/2005 Penicillins Hives/Urticaria,Rash/Dermatitis 03/2006 Medications Medication Sig Dispensed Refills Start Date End Date Status MULTIVITAMIN OR one po qd 0 Active CALCIUM + D 600-200 MG-UNIT OR TABS 1 TABLET DAILY 0 Activ e sildenafil (REVATIO) 20 MG tablet Take 1 Tab by mouth as needed for Erectile Dysfunction. 100 Tab 0 09/15/2020 Active losartan (COZAAR) 25 MG tablet Take 1 tablet by mouth 2 times daily. 180 tablet 1 06/22/2021 Active amlodipine (NORVASC) 10 MG tablet Take 1 tablet by mouth daily for 180 days. 90 tablet 1 06/22/2021 Active Active Problems Problem Noted Date Nephrolithiasis 09/22/2020 ED (erectile dysfunction) 06/01/2010 Essential hypertension, benign 8 Family history of malignant neoplasm of gastrointestinal tract 06/07/2006 Overview: Brother with diagnosis of colon cancer at age 48; negative colonoscopy 06.07.06, 08/19/2011; next exam due 2016. ALLERGIC RHINITIS, 10/03/2005 Immunizations Name Administration Dates Next Due Influenza (> 6 Months) 05/18/2016,2014,04/24/2013,2011,06/01/2010,07/03/2009,03/25/2008 Influenza (>6 Months) Split Preservative Free 2011 Influenza H1N1 Pandemic Flu Vaccine 07/03/2009 Influenza Vaccine-quadrivale nt 4 Years Plus 05/07/2017 TD (STATE SUPPLIED FOR ADULT S AND CHILDREN) 10/03/2005 Tdap 2011 Varicella 08/17/2018,07/13/2018 Family History Medical History Relation Name Comments Hypertension Brother 2 Cancer of the Colon Brother 3 Hypertension Father NE Father Stroke Father CA Prostate Maternal Grandfather Hypertension Mother Stroke Mother of cva age 45 Hypertension Sister 2 CA Ovarian Sister 3 Relation Name Status Comments Brother 1 Alive Brother 2 Brother 3 Father Alive Maternal Grandfather Mother Sister 1 Alive Sister 2 Sister 3 Social History Tobacco Use Types Packs/Day Years Used Date Smoking Tobacco: Never Smokeless Tobacco: Never Alcohol Use Standard Drinks/Week Comments Yes 0 (1 standard drink = 0.6 oz pur e alcohol) occas Sex Assigned at Date Recorded Not on file Last Filed Vital Signs Vital Sign Reading Time Taken Comments Blood Pressure 126/80 06/22/2021 2:34 PM EST Pulse 90 06/22/2021 2:34 PM EST Temperature 36.3 ??C (97.4 ??F) 06/22/2021 2:34 PM ES T Respiratory Rate 18 06/22/2021 2:34 PM EST Oxygen Saturation 99% 06/22/2021 2:34 PM EST RA Inhaled Oxygen Concentration - - Weight 93.9 kg (207 lb 1.6 oz) 06/22/2021 2:34 P M EST Height 180.3 cm (5' 11 ) 06/22/2021 2:34 PM EST Body Mass Index 28.88 06/22/2021 2:34 PM EST Plan of Treatment Health Maintenance Due Date Last Done Comments Covid-19 Vaccine (#1) 01/11/1967 SHINGLES VACCINE (1 of 2) 2016 DTAP/TDAP/TD (2 - Td or Tdap) 2021 2011, 10/03/2005 COLON CANCER SCREENING 11/07/2021 7, 08/19/2011, 08/19/2011, Additional history exists BASELINE HEALTH EXAM 40-64 09/22/202209/22, 07/10/2018, 05/18/2016, Additional history exists BMI CHECK/ADVISE 06/26/2024 06/22/2021, , 09/22/2020, Additional history exists INFLUENZA (Season Ended) 2025 019 (Refused), 04/17/2018 (Refused), 05/07/2017, Additional history exists CHOLESTEROL SCREENING 05/25/2026 05/25/2021 , 09/22/2020, 06/11/2019, Additional history exists PNEUMOCOCCAL VACCINE FOR HIGH RISK PATIENTS (#1) 2031 HEPATITIS C SCREENING Addressed 04/20/2015 (Excepti on) Overridden with the intention of not completing the topic Care Teams Lead Web Developer Relationship Specialty Start Date End Date Stephan Chavarria MD [address] [place] [address] PCP - General Internal Medicine 05/18/21
--- OUTSIDE RECORDS SUMMARY | 2024-10-25 13:15 | XMS_ITS | Encounter Summary ---
Author Organization [facility] Address [address] [place] [address] Care Team Providers Care Epic Ambulatory Specialists Name Role Phone Esperanza Levine MD Primary Care Provider Unavailable Stephan Chavarria MD Primary Care Provider [phone] Reason for Visit * Reason Onset Date Comments APPOINTMENT 10/02/2018 [facility] Encounter Details Date Type Department Care Team Description 10/02/2018 Telephone Adult Medicine - [address] [address] Esperanza Levine MD APPOINTMENT ([facility]) Social History Tobacco Use Types Packs/Day Years Used Date Smoking Tobacco: Never Smokeless Tobacco: Never Alcohol Use Standard Drinks/Week Comments Yes 0 (1 standard drink = 0.6 oz pur e alcohol) occas Sex Assigned at Date Recorded Not on file documented as of this encounter Miscellaneous Notes * Telephone Encounter - Manuel Hernandez M.A. - 10/02/2018 3:59 PM EDT Message left for patient to call office back with lady. [facility] appt needed if patient agrees. documented in this encounter Plan of Treatment Not on file documented as of this encounter Visit Diagnoses Not on filedocumented in this encounter Care Teams Epic Ambulatory Specialists Relationship Specialty Start Date End Date Esperanza Levine MD PCP - General 04/13/0004/27 Stephan Chavarria MD [address] [place] [id number] PCP - General Internal Medicine 05/18/21 documented as of this encounter
--- OUTSIDE RECORDS SUMMARY | 2024-10-25 13:15 | XMS_ITS | Encounter Summary ---
Author Organization [facility] Address [address] [place] [address] Care Team Providers Care Service Now Developer Name Role Phone Esperanza Levine MD Primary Care Provider Unavailable Stephan Chavraria MD Primary Care Provider [phone] Encounter Details Date Type Department Care Team Description 05/05/2020 Hospital Medical Records [address] [place] [id number] Xiomara Jolly MD Social History Tobacco Use Types Packs/Day [...] on filedocumented in this encounter Care Teams Service Now Developer Relationship Specialty Start Date End Date Esperanza Levine MD PCP - General 04/13/0004/27 Stephan Chavarria MD [address] [place] [id number] PCP - General Internal Medicine 05/18/21 documented as of this encounter
--- OUTSIDE RECORDS SUMMARY | 2024-10-25 13:15 | XMS_ITS | Encounter Summary ---
Author Organization [facility] Address [address] [place] [address] Care Team Providers Care Assistant Clinical Director Name Role Phone Esperanza Levine MD Primary Care Provider Unavailable Stephan Chavarria MD Primary Care Provider [phone] Encounter Details Date Type Department Care Team Description 10/15/2014 Pt. Non Urgent Medical Question Adult Medicine - [address] [address] Esperanza Levine MD Fatigue (Primary Dx) Social History Tobacco Use Types Packs/Day Years Used Date Smoking Tobacco: Never Smokeless Tobacco: Never Alcohol Use Standard Drinks/Week Comments Yes 0 (1 standard drink = 0.6 oz pur e alcohol) occas Sex Assigned at Date Recorded Not on file documented as of this encounter Progress Notes * Julia Resendez L.P.NChase - 10/15/2014 8:32 AM EDTFrom: Luis Amisha To: Esperanza Levine MD Sent: 10/15/2014 3:03 AM EDT Subject: Feeling tired Recently, I started a new job on occasion I feel very tired in the evening and fall asleep early. Monday it was brought to my attention that the air has elevated levels of C02.( 900 ppm to 5300 ppm).My concern it's making me tired and affecting me. My question is should I have a blood test for C02and at those levels is it a serious concern? I can be reached at [phone] if you have any questions. documented in this encounter Plan of Treatment Not on file documented as of this encounter Results * THYROID PROFILE W/TSH (10/18/2014 4:36 PM EDT) TSH CASCADE 2.53 0.40 - 4.00 uIU/ml 10/19/2014 12:09 PM EDT [facility] 10/18/2014 4:36 PM EDT 10/18/2014 4:37 PM EDT Esperanza Levine MD LAB Performing Organization Address City/State/[facility] Co de Phone Number [facility] [address] [place] [address] * (ABNORMAL) CBC (AUTO DIFF PLATELET) (10/18/2014 4:36 PM EDT) WBC 8.9 4.8 - 10.8 x10-3 10/18/2014 4:45 PM EDT [facility] RBC 4.7 4.5 - 5.5 x10-6 10/18/2014 4:45 PM EDT [facility] HGB 13.7 13.5 - 17.5 g/dl 10/18/2014 4:45 PM EDT [facility] HCT 40.8(L) 42 - 54 % 10/18/2014 4:45 PM EDT [facility] MCV 87.2 79 - 98 fl 10/18/2014 4:45 PM EDT [facility] MCH 29.3 27 - 32 pg 10/18/2014 4:45 PM EDT [facility] MCHC 33.6 32 - 37 g/dl 10/18/2014 4:45 PM EDT [facility] RDW 13.2 11 - 15 % 10/18/2014 4:45 PM EDT [facility] PLT COUNT 287 130 - 400 x10-3 10/18/2014 4:45 PM EDT [facility] MEAN PLATELET VOLUME 10.1 7 - 11 fl 10/18/2014 4:45 PM EDT [facility] NEUT % 59.6 41 - 85 % 10/18/2014 4:45 PM EDT [facility] LYMPH % 28.0 15 - 48 % 10/18/2014 4:45 PM EDT [facility] MONO % 9.8 0 - 12 % 10/18/2014 4:45 PM EDT [facility] EOS % 1.9 0 - 5 % 10/18/2014 4:45 PM EDT [facility] BASO % 0.7 0 - 2 % 10/18/2014 4:45 PM EDT [facility] 10/18/2014 4:36 PM EDT 10/18/2014 4:37 PM EDT Esperanza Levine MD LAB [facility] [address] [facility] * COMPREHENSIVE METABOLIC PANEL (10/18/2014 4:36 PM EDT) [facility] GLUCOSE 89 70 - 100 mg/dL 10/19/2014 12:09 PM [facility] Comment: Reference range applicable to fasting specimens only Based on recommendations from the ADA and AACE, the fasting glucose reference range has been changed to 70-100 mg/dL. ??This change is effective November 09, 2009 BUN 15 5 - 25 mg/dL 10/19/2014 12:09 PM [facility] CREAT 0.9 0.7 - 1.5 mg/dL 10/19/2014 12:09 PM [facility] BUN/CREAT RATIO 16.7 6.0 - 20.0 10/19/2014 12:09 PM [facility] GFR > 60 >60 10/19/2014 12:09 PM [facility] Comment: If patient is -Tristanian, multiply result by 1.21 Chronic Kidney Disease: < 60 ml/min/1.73 square meters Kidney Failure: < 15 ml/min/1.73 square meters Sodium 139 133 - 145 mEq/L 10/19/2014 12:09 PM [facility] Potassium 4.1 3.5 - 5.2 mEq/L 10/19/2014 12:09 PM EDT [facility] Chloride 99 96 - 108 mEq/L 10/19/2014 12:09 PM EDT [facility] CO2 26.6 21.0 - 32.0 mEq/L 10/19/2014 12:09 PM EDT [facility] CALCIUM 9.2 8.5 - 10.5 mg/dL 10/19/2014 12:09 PM EDT [facility] TOTAL PROTEIN 7.1 6.0 - 8.3 gm/dL 10/19/2014 12:09 PM EDT [facility] Albumin 4.4 3.2 - 5.6 gm/dL 10/19/2014 12:09 PM EDT [facility] GLOBULIN 2.7 1.9 - 4.4 gm/dL 10/19/2014 12:09 PM EDT [facility] A/G RATIO 1.6 1.1 - 2.3 10/19/2014 12:09 PM EDT [facility] BILI,TOTAL 0.6 0.0 - 1.2 mg/dL 10/19/2014 12:09 PM EDT [facility] AST (SGOT) 20 10 - 42 U/L 10/19/2014 12:09 PM EDT [facility] ALT( SGPT) 16 10 - 60 U/L 10/19/2014 12:09 PM EDT [facility] ALK PHOS 74 42 - 121 U/L 10/19/2014 12:09 PM EDT [facility] 10/18/2014 4:36 PM EDT 10/18/2014 4:37 PM EDT Esperanza Levine MD LAB [facility] [address] [place] [address] documented in this encounter Visit Diagnoses Diagnosis Fatigue- Primary Other malaise and fatigue documented in this encounter Care Teams Assistant Clinical Director Relationship Specialty Start Date End Date Esperanza Levine MD PCP - General 04/13/0004/27 Stephan Chavarria MD [address] [place] [id number] PCP - General Internal Medicine 05/18/21 documented as of this encounter
--- OUTSIDE RECORDS SUMMARY | 2024-10-25 13:15 | XMS_ITS | Encounter Summary ---
Author Organization [facility] Address [address] [place] [address] Care Team Providers Care Can Closing Machine Operator Name Role Phone Esperanza Levine MD Primary Care Provider Unavailable Stephan Chavarria MD Primary Care Provider [phone] Encounter Details Date Type Department Care Team Description 02/07/2017 Ambulatory Blood Pressure Monitoring Medical Records [address] [place] [id number] Abstract, Provider Social History Tobacco Use Types [...] on filedocumented in this encounter Care Teams Can Closing Machine Operator Relationship Specialty Start Date End Date Esperanza Levine MD PCP - General 04/13/0004/27 Stephan Chavarria MD [address] [place] [id number] PCP - General Internal Medicine 05/18/21 documented as of this encounter
--- OUTSIDE RECORDS SUMMARY | 2024-10-25 13:15 | XMS_ITS | Encounter Summary ---
Author Organization [facility] Address [address] [place] [address] Care Team Providers Care Stone Polisher Machine Name Role Phone Esperanza Levine MD Primary Care Provider Unavailable Stpehan Chavarria MD Primary Care Provider [phone] Encounter Details Date Type Department Care Team Description 05/14/2014 Pt. Non Urgent Medic al Question Adult Medicine - [address] [address] Esperanza Levine MD Social History Tobacco Use Types Packs/Day Years Used Date Smoking Tobacco: Never Smokeless Tobacco: Never Alcohol Use Standard Drinks/Week Comments Yes 0 (1 standard drink = 0.6 oz pur e alcohol) occas Sex Assigned at Date Recorded Not on file documented as of this encounter Progress Notes * Lashell Allred M.A. - 05/14/2014 8:49 AM ESTFrom: Luis Lion To: Esperanza Levine MD Sent: 05/14/2014 1:20 AM EST Subject: dose question Hi Doc, Last August, I asked you about reducing my amlodipine 1.5 tablet (7.5 MG) to 1 tablet (5 MG). You said no and continue with 7.5 MG (1.5 tablet). I just noticed my last two refills indicate 1 tablet (5MG) on the prescription. The question is should I be taking 5 MG or 7.5 MG? I've been taking 1.5 tablet (7.5 MG) per day. Please advise Thank you, [place] documented in this encounter Plan of Treatment Not on file documented as of this encounter Visit Diagnoses Not on filedocumented in this encounter Care Teams Stone Polisher Machine Relationship Specialty Start Date End Date [place]-Esper[place] Vargas MD PCP - General 04/13/0004/27 Stephan Chavarria MD [address] [place] [address] PCP - General Internal Medicine 05/18/21 documented as of this encounter
== END 2024-10-25 15:03 | disposition home or self-care (01) ==
LOC: HO.HMCC 12:51
PROVIDERS: PCP Internal Medicine; Visit Provider Internal Medicine
DX: I10 Essential (primary) hypertension (principal)

== ENCOUNTER → 2024-10-25 12:50 | Outpatient (BNVA) | payer BC, SELFPAY | PROVIDERS: PCP Internal Medicine; Visit Provider Internal Medicine | DX: I10 Essential (primary) hypertension (principal); Z79.899 Other long term (current) drug therapy | CPT/HCPCS: 96127 ==

== ENCOUNTER 2025-01-13 08:15 | Day surgery (SDC) | payer BC, SELFPAY ==
--- NOTE | 2025-01-09 14:59 | HO.ANESPROP2 ---
Documented by User: Elizabeth Chawla NP 01/09/25 15:00 HPI - Anesthesia Eval Consult details Narrative: 59yo M for Colonoscopy PMFSH Active Problems Active Problems: All Active Problems Family history of colorectal cancer (Acute) Anemia (Acute) Hyperlipemia (Acute) Edema (Acute) Annual physical exam (Acute) Hx of colonoscopy (Acute) Erectile dysfunction (Acute) Nephrolithiasis (Acute) HTN (hypertension) (Acute) Past Medical History Medical History Family history of colorectal cancer Erectile dysfunction Nephrolithiasis HTN (hypertension) Family History Family History Brother Colon cancer Sister Ovarian ca Mother CVA (cerebral vascular accident) Surgical History Surgical History Hx of colonoscopy Social History Social History 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:: , 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, 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, 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: House Patient Tobacco Use Status: Never used Tobacco e-Cigarette/Vaping Use: Never Used Use of substances other than those prescribed or required for medical reasons: No Are you DNR?: No Advance Directives: No Advance Directives Information Provided: Yes service: No Current occupational status: employed Cognitive needs: No Hearing needs: No Vision needs: Yes Meds Allergies Allergy/AdvReac Type Severity Reaction Status Date / Time amoxicillin AdvReac Hives Verified 01/13/25 08:42 atropine (From Lomotil) AdvReac Hives Verified 01/13/25 08:42 diphenoxylate (From Lomotil) AdvReac Hives Verified 01/13/25 08:42 Home Medications ?Medication ?Instructions ?Recorded ?Confirmed ?Last Taken ?Type amlodipine 10 mg-olmesartan 40 mg 1 tab PO BEDTIME 01/13/25 01/13/25 Unknown History tablet Assessment and Plan Assessment Anesthesia Assessment: Chart Reviewed Documented by User: Tiffanie Thompson MD 01/13/25 10:13 [facility] Past Medical History Medical History Family history of colorectal cancer Erectile dysfunction Nephrolithiasis HTN (hypertension) Family History Family History Brother Colon cancer Sister Ovarian ca Mother CVA (cerebral vascular accident) Surgical History Surgical History Hx of colonoscopy History of Problems with Anesthesia: No Social History Social History 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:: , 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, 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, 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: House Patient Tobacco Use Status: Never used Tobacco e-Cigarette/Vaping Use: Never Used Use of substances other than those prescribed or required for medical reasons: No Are you DNR?: No Advance Directives: No Advance Directives Information Provided: Yes service: No Current occupational status: employed Cognitive needs: No Hearing needs: No Vision needs: Yes Meds Allergies Allergy/AdvReac Type Severity Reaction Status Date / Time amoxicillin AdvReac Hives Verified 01/13/25 08:42 atropine (From Lomotil) AdvReac Hives Verified 01/13/25 08:42 diphenoxylate (From Lomotil) AdvReac Hives Verified 01/13/25 08:42 Home Medications ?Medication ?Instructions ?Recorded ?Confirmed ?Last Taken ?Type amlodipine 10 mg-olmesartan 40 mg 1 tab PO BEDTIME 01/13/25 01/13/25 Unknown History tablet Exam Airway Mallampati Class: III TM Dist: >3cm Neck ROM: Full Loose/Missing/Broken Teeth: No Heart: RRR Lungs: CTA Assessment and Plan Assessment Anesthesia Assessment: Anesthesia Plan Discussed Final Anesthetic Review History of Problems with Anesthesia: No NPO: Yes ASA Class: II Final Preanesthetic Review: Meds/Allgs Chart Reviewed, Consent Obtained/Reviewed and Anes Risks/Benef Reviewed Patient Risk: Low Procedure Risk: Low Anesthetic Plan Anesthetic Plan: MAC: Disposition: Standard PACU
[2025-01-09 15:47] VITALS: BMI 28.5
--- NOTE | 2025-01-13 08:23 | MHC.SHP ---
Pre-Procedural Eval Section A - 24 Hr Update-Section A only Date of Service: 01/13/25 The patient is an INPATIENT: No The patient has been examined within 24 hours of the surgical procedure. The History & Physical has been completed within 30 days and I have reviewed it.: No Section B - Complete if H&P > 30 days Chief Complaint: screening, FH of colon cancer Relevant Family History (Specify if Yes): Yes Present Medications: see Short Stay Collaborative assessment Medical History: Significant History (Family history of colorectal cancer Erectile dysfunction Nephrolithiasis HTN (hypertension)) History of Previous Operations: Relevant previous surgery/procedure and date(s) (History of colonoscopy) Allergies: Allergies Allergy/AdvReac Type Severity Reaction Status Date / Time amoxicillin AdvReac Hives Verified 10/25/24 12:59 atropine (From Lomotil) AdvReac Hives Verified 10/25/24 12:59 diphenoxylate (From Lomotil) AdvReac Hives Verified 10/25/24 12:59 Review of Systems Sugical H&P ROS: Negative: Constitution, Cardiovascular, Respiratory and Gastrointestinal Exam Surgical H&P Exam: Normal: Heart, Normal: Lungs and Normal: Extremities Plan Diagnosis/Plan: Unchanged I have reviewed the history and physical and performed a pertinent physical examination on my patient. No changes have occurred unless specified. Time Spent With Patient Time: Total time managing care of this patient today ____ minutes.
[2025-01-13 08:45] VITALS: BMI 26.7
[2025-01-13 08:48] VITALS: BP 115/71; PULSE 80; RESP 15; TEMP 36.8; O2SAT 97
[2025-01-13] MEDS: Lactated Ringers 1,000 ML 100 ML IVCONT (08:59)
--- NOTE | 2025-01-13 10:54 | P.OPN-COLO_ITS ---
Colonoscopy Operative Note Operative Note Date of Service: 01/13/25 Narrative: COLONOSCOPY TILL CECUM WITH BIOPSIES AND SNARE POLYPECTOMY Pre-op diagnosis: Colon cancer screening (4th colon - last colon in 2017), family history of colon cancer (brother at age 49 yrs). Post-op diagnosis:? colon polyp, Diverticulosis, hemorrhoids Endoscopist:? Vania Hammer MD Anesthesia:?MAC Consent: Indications for the procedure and potential complications of bleeding, perforation, reaction to medications and missed diagnosis were discussed with the patient and informed consent was obtained. Instrument: Olympus CF H 190 L variable stiffness adult colonoscope Monitoring: Vital signs and clinical assessment, intermittent blood pressure monitoring, continuous EKG monitoring, Pulse oximetry and Carbon Dioxide monitoring were done throughout the procedure. Please see anesthesia flowsheet. Colon withdrawl time was 20 minutes. Procedure: The patient was placed in the left lateral decubitis position and pre-procedure medications were administered. After a digital rectal examination of the ano-rectum, the video colonoscope was inserted into the rectum and advanced through the colon to the cecum. The colonoscope was slowly withdrawn in a retrograde panoramic fashion and the colon mucosa was carefully examined including a retroflexed view of the rectum. Findings and interventions are described below. Procedure Difficulty: without difficulty Findings: Terminal Ileum: Distal 5 cm was examined and appeared normal. Cecum: Posterior lip of ICV appeared prominent and biopsies were obtained Ascending Colon: Normal Transverse Colon: A 7-8 mm sessile polyp in the distal TC at 60 cms - removed with a hot snare. Descending Colon: Moderate diverticulosis Sigmoid Colon: Moderate diverticulosis Rectum: Normal Ano-rectum: Moderate internal hemorrhoids Colon preparation: Good after some irrigation. [place] Bowel Preparation Scale Right colon; 2 Transverse colon: 2 Left colon; 2 (0 = Unprepared colon segment with mucosa not seen due to solid stool that cannot be cleared. 1 = Portion of mucosa of the colon segment seen, but other areas of the colon segment not well seen due to staining, residual stool and/or opaque liquid. 2 = Minor amount of residual staining, small fragments of stool and/or opaque liquid, but mucosa of colon segment seen well. 3 = Entire mucosa of colon segment seen well with no residual staining, small fragments of stool or opaque liquid) Impression and Post Procedure Diagnosis: Colonoscopy Findings: One small polyp was removed Posterior lip of ICV appeared prominent and biopsies were obtained to rule out adenomatous change Moderate diverticulosis seen in the left colon Moderate hemorrhoids on retroflexed exam. Plan: I will send a letter with biopsy results If biopsies from ICV show adenomatous change patient will need surgery for rem oval of the polyp. Repeat Colonoscopy in 5 years if polyps are adenomatous and 10 year if polyps are hyperplastic (of note pt has had 3 negative colonoscopies in the past). Above findings were reviewed with the patient and relevant handouts were given and the discharge area.
[2025-01-13 10:55] VITALS: BP 96/59; PULSE 59; RESP 18; TEMP 36.4; O2SAT 100
[2025-01-13 11:10] VITALS: BP 118/72; PULSE 68; RESP 16; O2SAT 99
[2025-01-13 11:22] VITALS: BP 121/75; PULSE 71; RESP 16; TEMP 36.4; O2SAT 99
== END 2025-01-13 11:39 | disposition home or self-care (01) ==
PROVIDERS: PCP Internal Medicine; Visit Provider Internal Medicine Gastroenterology
PROC: 0DJD8ZZ Inspection of Lower Intestinal Tract, Via Natural or Artificial Opening Endoscopic (ICD-10-PCS; CPT 45378; principal; 2025-01-13 10:10)
DX: Z12.11 Encounter for screening for malignant neoplasm of colon (principal); Z80.0 Family history of malignant neoplasm of digestive organs; K63.5 Polyp of colon; K57.30 Diverticulosis of large intestine without perforation or abscess without bleeding; K64.8 Other hemorrhoids; N52.9 Male erectile dysfunction, unspecified; N20.0 Calculus of kidney; I10 Essential (primary) hypertension; Z79.899 Other long term (current) drug therapy; Z88.1 Allergy status to other antibiotic agents; Z88.8 Allergy status to other drugs, medicaments and biological substances
CPT/HCPCS: 45385; 45380; 88305; J2003; J2704

== ENCOUNTER → 2025-01-13 08:15 | Outpatient (BNV) | payer BC, SELFPAY | PROVIDERS: PCP Internal Medicine; Visit Provider Internal Medicine Gastroenterology | DX: Z12.11 Encounter for screening for malignant neoplasm of colon (principal); K55.8 Other vascular disorders of intestine; D12.3 Benign neoplasm of transverse colon; K57.90 Diverticulosis of intestine, part unspecified, without perforation or abscess without bleeding; K64.8 Other hemorrhoids | CPT/HCPCS: 45380; 45385 ==

== ENCOUNTER 2025-03-07 09:40 | Outpatient (REF) | payer BC, SELFPAY ==
[2025-03-07 13:23] LABS: MANUAL DIFF FLAG NO
[2025-03-07 13:34] LABS: Hematocrit 38.1 % (42.0-52.0); Hemoglobin 12.9 g/dl (14.0-18.0); Imm Gran Abs Auto 0.04 X10*3/uL (0.00-0.03); Imm Gran Pct Auto 0.5 % (0.0-0.4); Lymphocytes Absolute Auto 1.7 X10*3/uL (1.2-4.9); Mean Corpuscular HGB Conc 33.9 g/dl (31.0-36.0); Mean Corpuscular Hemoglobin 29.7 pg (27.0-33.0); Mean Corpuscular Volume 87.8 fL (80.0-98.0); NRBC Abs Auto 0.000 X10*3/uL (0.0-0.012); NRBC Pct Auto 0.0 /100WBC (0.0-0.2); Platelet Count 267 X10*3/uL (160-400); Red Blood Count 4.34 X10*6/uL (4.60-5.80); White Blood Count 7.7 X10*3/uL (4.8-10.8)
[2025-03-07 13:51] LABS: Appearance Urine Clear; Glucose Urine UA Negative (Negative); PH 6.5 (5.0-9.0); Specific Gravity - Urine 1.020 (1.005-1.025)
[2025-03-07 14:14] LABS: PSA,Total (Free>4and<10) 1.50 ng/mL (0.00-4.00)
[2025-03-07 14:26] LABS: Alanine Aminotransferase 35 U/L (0-40); Albumin Level 4.2 g/dL (3.5-5.0); Alkaline Phosphatase 65 U/L (39-117); Anion Gap 10 (12-20); Aspartate Amino Transferase 36 U/L (5-37); Blood Urea Nitrogen 14 mg/dL (9-16); Calcium 8.8 mg/dL (8.4-10.2); Carbon Dioxide 28 mmol/L (22-29); Chloride 108 mmol/L (96-108); Cholesterol 175 mg/dL (<200); Estimated Glomerular Filt Rate > 60; HDL Cholesterol 47 mg/dL (>40); Iron 92 mcg/dL (45-160); Percent Iron Saturation 42 % (15-50); Potassium 3.9 mmol/L (3.3-5.1); Sodium 142 mmol/L (135-145); Total Iron Binding Capacity 221 mcg/dL (228-428); Total Protein 7.1 g/dL (6.5-8.0); Triglycerides 92 mg/dL (<150); Unsaturated Iron Binding 129 ug/dL
[2025-03-07 14:29] LABS: Folate 12.7 ng/mL (> or = 4.0); Vitamin B12 619 pg/mL (200-900)
== END 2025-03-07 09:41 | disposition home or self-care (01) ==
LOC: HO.HMGCLDS 09:40
PROVIDERS: PCP Internal Medicine; Visit Provider Internal Medicine
DX: I10 Essential (primary) hypertension (principal); E78.5 Hyperlipidemia, unspecified; D64.9 Anemia, unspecified; Z12.5 Encounter for screening for malignant neoplasm of prostate; Z98.890 Other specified postprocedural states
CPT/HCPCS: 36415; 80053; 80061; 81001; 82607; 82746; 83540; 84153; 85025; 86140; 96127

== ENCOUNTER 2025-03-07 09:40 | Outpatient (AMB) | payer BC, SELFPAY ==
[2025-03-07 09:43] VITALS: BP 116/66; PULSE 72; RESP 18; TEMP 36.9; O2SAT 97; BMI 28.3
--- NOTE | 2025-03-07 09:43 | A.OFFPC_ITS ---
Vital Signs 03/07/25 09:43 Height 6 ft Weight 209 lb BMI 28.3 BP 116/66 Blood Pressure Location Rt brachial Position Sitting Respiration 18 Pulse 72 Pulse Source Pulse Oximeter Temp 98.4 F Temp Source Oral Pulse Oximetry (%) 97 Oxygen Delivery Method Room Air Intake Visit Reasons: PE Intake Note: Pt is here today for PE. Allergies amoxicillin Adverse Reaction (Verified 03/07/25 10:00) Hives atropine (From Lomotil) Adverse Reaction (Verified 03/07/25 10:00) Hives diphenoxylate (From Lomotil) Adverse Reaction (Verified 03/07/25 10:00) Hives Medication List - Last Reconciled 03/07/25 by Jessica Adkins MD amlodipine-olmesartan 10-40 mg 1 tab PO BEDTIME Tobacco use date assessed: 03/07/25 Dental Screening Dental Screen Date: 10/25/24 HPI PE HPI Details Patient presents for physical PFSH Medical History Family history of colorectal cancer Erectile dysfunction Nephrolithiasis HTN (hypertension) Surgical History (Updated 03/07/25 @ 10:35 by Jessica Adkins MD) Hx of colonoscopy Family History Brother Colon cancer Sister Ovarian ca Mother CVA (cerebral vascular accident) Social History 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:: , 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 1. Little interest or pleasure in doing things: not at all 2. Feeling down, depressed, or hopeless: not at all 3. Trouble falling or staying asleep, or sleeping too much: not at all 4. Feeling tired or having little energy: not at all 5. Poor appetite or overeating: not at all 6. Feeling bad about yourself - or that you are a failure or have let yourself or your family down: not at all 7. Trouble concentrating on things, such as reading the newspaper or watching television: not at all 8. Moving or speaking so slowly that other people could have noticed. Or the opposite - being so fidgety or restless that you have been moving around a lot m ore than usual: not at all 9. Thoughts that you would be better off or of hurting yourself in some way: not at all Total score: 0 Depression Screening Interpretation: Negative Depression Screening Done: Yes Source: Developed by Drs. South Raza, Mis Cruz, Mansoor Hayden and colleagues, with an educational chang from [employer]. Thrive Questionnaire Date Thrive assessed: 10/04/24 I am a: Patient What is your living situation today?: I have a steady place to live Within the past 12 months, did the food you bought not last and you didn't have the money to get more?: Never true Within the past 12 months, did you worry whether your food would run out before you got money to buy more?: Never true Do you have trouble paying for medicines?: No Do you have trouble getting transportation to medical appointments?: No Do you have trouble paying your heating and electricity bill?: No Do you have trouble taking care of your child, family member or friend?: I choose not to answer this question Do you have trouble with day-to-day activities such as bathing, preparing meals, shopping, managing finances, etc.?: Yes Are you currently unemployed and looking for a job?: No Are you interested in more education?: No Please select the resources that you would like help with: None Currently or been in a relationship where the following occur: No concerns reported THRIVE Score: 0 LUIZ-7 AMB Questionnaire LUIZ-7 Date LUIZ - 7 assessed: 10/25/24 Feeling nervous, anxious, or on edge: 0 = Not at all Not being able to stop or control worryin = Not at all Worrying too much about different things: 0 = Not at all Trouble relaxin = Not at all Being so restless that it is hard to sit still: 0 = Not at all Becoming easily annoyed or irritable: 0 = Not at all Feeling afraid as if something awful might happen: 0 = Not at all Total LUIZ-7 score (0-4 normal; 5-9 mild; 10-14 moderate; 15-21 severe): 0 Source: Developed by Drs. South Raza, Mis Cruz, Mansoor Hayden and colleagues, with an educational chang from [employer]. Review of Systems Const All systems reviewed & are unremarkable except as noted in HPI and below Eyes Reports no additional complaints ENT Reports no additional complaints Card Reports no additional complaints Resp Reports no additional complaints GI Reports no additional complaints Reports no additional complaints Physical exam (Primary Care) Vital Signs: Last Vital Signs Temp 98.4 F 03/07/25 09:43 Pulse 72 03/07/25 09:43 Resp 18 03/07/25 09:43 BP 116/66 03/07/25 09:43 Pulse Ox 97 03/07/25 09:43 Oxygen Delivery Method Room Air 03/07/25 09:43 BMI result Body Mass Index 28.3 Tobacco/Smoking Status: Tobacco use Status Tobacco use date assessed 03/07/25 03/07/25 09:44 Patient Tobacco Use Status Never used Tobacco 03/07/25 09:43 e-Cigarette/Vaping Use Never Used 03/07/25 09:43 PHQ-9: PHQ-9 Score PHQ-9: Total score 0 03/07/25 10:03 Depression Screening Interpretation: Negative Thrive Assessment: Date of Thrive Assessment Date Thrive assessed 10/04/24 03/07/25 09:43 Currently or been in a relationship where the following occur: No concerns reported Const General: no acute distress HENMT Ears: TM's normal bilaterally Mouth: Normal oral and palatal mucosa present Throat: Yes posterior oropharynx normal Eyes General: appearance normal, both eyes and all related structures Neck Neck: Yes no lymphadenopathy and Yes supple Resp Effort & Inspection: normal respiratory effort Auscultation: clear to auscultation bilaterally Cardio Rhythm: regular rhythm Heart sounds: S1 normal heart sound present and S2 normal heart sound present GI Inspection: Yes normal to inspection Palpation (GI): Soft to palpation Percussion: Yes normal to percussion Auscultation: normal bowel sounds Coding Level of Care Code Est Pt Prev Care 40-64y(05285) Diagnoses HTN (hypertension) I10 Hyperlipemia E78.5 Anemia D64.9 Assessment & Plan Assessment & Plan (1) HTN (hypertension): Code(s): I10 - Essential (primary) hypertension Category: Medical Plan: cont meds (2) Hyperlipemia: Comment: Diet controlled Code(s): E78.5 - Hyperlipidemia, unspecified Category: Medical Plan: cont low cholesterol diet (3) Anemia: Comment: Normal iron count and B12 level Code(s): D64.9 - Anemia, unspecified Category: Medical Plan: Monitor CBC Orders: Orders Lipid Panel Today E78.5 - Hyperlipidemia, unspecified, I10 - Essential (primary) hypertension, Z98.890 - Other specified postprocedural states Vitamin B12 and Folate Today D64.9 - Anemia, unspecified PSA,Total (Free>4and<10) 1 Year E78.5 - Hyperlipidemia, unspecified, I10 - Essential (primary) hypertension, Z00.00 - Encounter for general adult medical examination without abnormal findings Comprehensive [place]. Panel Fast Today E78.5 - Hyperlipidemia, unspecified, I10 - Essential (primary) hypertension, Z98.890 - Other specified postprocedural states Complete Blood Count Auto Diff Today E78.5 - Hyperlipidemia, unspecified, I10 - Essential (primary) hypertension, Z98.890 - Other specified postprocedural states PSA,Total (Free>4and<10) Today E78.5 - Hyperlipidemia, unspecified, I10 - Essential (primary) hypertension, Z98.890 - Other specified postprocedural states UA w Microscopic Today E78.5 - Hyperlipidemia, unspecified, I10 - Essential (primary) hypertension, Z98.890 - Other specified postprocedural states C Reactive Protein Today E78.5 - Hyperlipidemia, unspecified, I10 - Essential (primary) hypertension, Z98.890 - Other specified postprocedural states IRON PROFILE Today D64.9 - Anemia, unspecified Comprehensive [place]. Panel Fast 1 Year E78.5 - Hyperlipidemia, unspecified, I10 - Essential (primary) hypertension, Z00.00 - Encounter for general adult medical examination without abnormal findings Complete Blood Count Auto Diff 1 Year E78.5 - Hyperlipidemia, unspecified, I10 - Essential (primary) hypertension, Z00.00 - Encounter for general adult medical examination without abnormal findings Lipid Panel 1 Year E78.5 - Hyperlipidemia, unspecified, I10 - Essential (primary) hypertension, Z00.00 - Encounter for general adult medical examination without abnormal findings UA w Microscopic 1 Year E78.5 - Hyperlipidemia, unspecified, I10 - Essential (primary) hypertension, Z00.00 - Encounter for general adult medical examination without abnormal findings Medications: New amlodipine-olmesartan 10-40 mg 1 tab PO BEDTIME 90 tabs 3RF
== END 2025-03-07 10:46 | disposition home or self-care (01) ==
LOC: HO.HMCC 09:40
PROVIDERS: PCP Internal Medicine; Visit Provider Internal Medicine
DX: Z00.00 Encounter for general adult medical examination without abnormal findings (principal); I10 Essential (primary) hypertension; E78.5 Hyperlipidemia, unspecified; D64.9 Anemia, unspecified